=== PATIENT | male | born 1950 | race Caucasian/White ===

== ENCOUNTER 2016-09-27 04:45 | Emergency (ER) | payer MEDICARE, OTHER ==
[~2016-09-27] VITALS: Ht 177.8 cm; Wt 93.4 kg
[2016-09-27] MEDS ORDERED: ATOR1TAB18 PO (05:09)
[2016-09-27] MEDS ORDERED: LEVOTAB10 PO (05:09)
[2016-09-27] MEDS ORDERED: SOTA80TA2 PO (05:09)
[2016-09-27] MEDS ORDERED: LANS30CA PO (05:09)
[2016-09-27] MEDS ORDERED: ELIQ5TAB PO (05:09)
--- NOTE | 2016-09-27 05:58 | ECGEPIP ---
Stationary ECG Study [facility] - ED Test Date: 2016-09-27 Pat Name: YENNY TINAJERO Department: Room: - Gender: M Rate Marker: DIXON : 1950 Requested By: RAJ GOMEZ Order Number: [id number] Reading MD: Xavier Glover Measurements Intervals [place] Rate: 75 P: 22 [place]: 168 QRS: 16 QRSD: 146 T: -17 QT: 419 QTc: 469 Interpretive Statements SINUS RHYTHM RBBB, NEW Electronically Signed On 09-27-2016 5:57:29 EDT by Xavier Glover
[2016-09-27 06:15] LABS: BASO % 0.4 % (0.0-1.0); EOS # 0.3 K/mm3 (0.0-0.50); EOS % 2.7 % (0.0-3.0); LARGE UNSTAINED CELL # 0.3 K/mm3 (0.0-0.4); LARGE UNSTAINED CELL % 2.9 % (0.0-4.0); LYMPH # 3.5 K/mm3 (1.5-4.5); LYMPH % 27.4 % (24.0-44.0); MEAN CORPUSCULAR HEMOGLOBIN 31.7 pg (27.0-33.0); MEAN CORPUSCULAR HGB CONC 34.1 g/dl (32.0-36.5); MONO # 0.7 K/mm3 (0.0-0.8); NEUTROPHILS % 60.6 % (36.0-66.0); PLATELET COUNT, AUTOMATED 265 k/mm3 (150-450); RED CELL DISTRIBUTION WIDTH 13.4 % (11.5-14.5); WHITE BLOOD COUNT 11.6 K/mm3 (4.0-10.0)
[2016-09-27] MEDS ORDERED: ASPIRIN 325 MG TAB PO ONE (06:15)
[2016-09-27] MEDS ORDERED: MORPHINE 4 MG/ML 1ML SYRINGE IV ONE (06:15)
[2016-09-27 06:17] LABS: INR 1.09
[2016-09-27 06:34] LABS: ANION GAP 8 MEQ/L (8-16); BLOOD UREA NITROGEN 20 MG/DL (7-18); CALCIUM LEVEL 8.3 MG/DL (8.8-10.2); CARBON DIOXIDE LEVEL 25 MEQ/L (21-32); CHLORIDE LEVEL 108 MEQ/L (98-107); CREATININE FOR GFR 1.06 MG/DL (0.70-1.30); GLOMERULAR FILTRATION RATE > 60.0 (>49); GLUCOSE, FASTING 114 MG/DL (80-110); POTASSIUM SERUM 3.6 MEQ/L (3.5-5.1); SODIUM LEVEL 141 MEQ/L (136-145)
--- NOTE | 2016-09-27 08:18 | REP ---
Clinical: Chest pain. Comparison: 10/13/2015. Findings: Mediastinum and cardiac silhouette are stable. Lung dixno are clear. No focal consolidation, effusion, or pneumothorax. Skeletal structures intact. Impression: Stable portable chest x-ray. No acute cardiopulmonary process or focal consolidation Signed by [place] Alaniz MD 09/27/2016 08:10 A
[2016-09-27 11:45] VITALS: BP 101/58
== END 2016-09-27 12:19 | disposition home or self-care (01) ==
LOC: M ED 06:14
DX: R07.9 Chest pain, unspecified (principal); I10 Essential (primary) hypertension; I48.91 Unspecified atrial fibrillation; I51.9 Heart disease, unspecified; E78.5 Hyperlipidemia, unspecified; K21.9 Gastro-esophageal reflux disease without esophagitis; Z87.442 Personal history of urinary calculi; Z95.0 Presence of cardiac pacemaker; Z95.1 Presence of aortocoronary bypass graft; Z79.899 Other long term (current) drug therapy; Z79.01 Long term (current) use of anticoagulants; J30.9 Allergic rhinitis, unspecified; Z88.0 Allergy status to penicillin; Z91.041 Radiographic dye allergy status

== ENCOUNTER → 2017-03-03 | Outpatient (CLI) | payer MEDICARE, OTHER ==
[~2017-03-03] MED LIST: ATOR80TA59 PO; ELIQ5TAB PO; LANS30CA PO; LEVOTAB10 PO; SOTA80TA2 PO
--- NOTE | 2017-03-03 15:37 | REP ---
CT abdomen and pelvis without IV or oral contrast: History: Epigastric pain. Allergy to IV contrast. Comparison CT study October 14, 2015. CT findings: Preliminary frozen yogurt maker radiograph demonstrates a pacemaker in place in the right heart. There are calcifications overlying the right and left kidney. Axial CT images demonstrate that the lung bases are clear. No pleural effusion is seen. The liver and the spleen are normal in size, homogeneous in texture. There is some dependent slightly dense material in the gallbladder lumen suggesting fine gallstones. No adrenal lesion is seen on either side. The pancreas is unremarkable. There is bilateral intrarenal nephrolithiasis. The right kidney contains four identifiable calculi ranging in size up to 0.9 cm. The left kidney contains an intrarenal calculus in the upper pole measuring 1.2 cm. There is also a tiny 1 mm calculus at the mid pole level of the left kidney. There is a 3.2 cm cyst in the left kidney. No hydronephrosis is seen on either side. A smaller cyst is noted in the right kidney. No bladder calculus is seen. Prostate and seminal vesicles are unremarkable. There is left colonic diverticulosis without CT evidence of diverticulitis. Normal appendix is seen in the right lower quadrant. There is evidence of a stable small fluid collection versus area of fibrosis post left inguinal hernia repair. This extends to the lateral wall of the anterior aspect of the urinary bladder, but is unchanged from the comparison study October 13, 2015. No abdominal wall defect is seen. Impression: 1. Possible cholelithiasis. 2. Intrarenal nephrolithiasis bilaterally without hydronephrosis. 3. Bilateral small renal cysts. 4. Left colonic diverticulosis. 5. Status post left inguinal hernia repair. Signed by Jose Miguel Mercado MD 03/03/2017 06:37 P
== END ==
LOC: M RAD 13:16
PROVIDERS: ATTEND Family Medicine
DX: R10.816 Epigastric abdominal tenderness (principal)

== ENCOUNTER 2018-08-17 11:40 | Emergency (ER) | payer MEDICARE, OTHER ==
[~2018-08-17] VITALS: Ht 180.3 cm; Wt 96.0 kg
[2018-08-17] MEDS ORDERED: NITR0.4S14 (12:00)
[2018-08-17 12:26] LABS: BASO # 0.1 10^3/uL (0.0-0.2); BASO % 0.6 % (0.0-1.0); EOS # 0.3 10^3/uL (0.0-0.50); EOS % 3.4 % (0.0-3.0); HEMATOCRIT 48.1 % (42.0-52.0); HEMOGLOBIN 16.6 g/dl (13.5-17.5); LYMPH # 3.4 10^3/uL (1.5-4.5); LYMPH % 41.5 % (24.0-44.0); MEAN CORPUSCULAR HEMOGLOBIN 31.7 pg (27.0-33.0); MEAN CORPUSCULAR HGB CONC 34.5 g/dl (32.0-36.5); MONO # 0.8 10^3/uL (0.0-0.8); MONO % 9.3 % (0.0-5.0); NEUTROPHILS # 3.7 10^3/uL (1.8-7.7); NEUTROPHILS % 45.1 % (36.0-66.0); PLATELET COUNT, AUTOMATED 221 10^3/uL (150-450); RED BLOOD COUNT 5.23 10^6/uL (4.30-6.10); WHITE BLOOD COUNT 8.2 10^3/uL (4.0-10.0)
[2018-08-17 12:36] LABS: INR 1.26
[2018-08-17 13:00] LABS: ALBUMIN 4.1 GM/DL (3.2-5.2); ALT/SGPT 39 U/L (12-78); BILIRUBIN,DIRECT 0.3 MG/DL (0.0-0.2); BILIRUBIN,TOTAL 1.7 MG/DL (0.2-1.0); BLOOD UREA NITROGEN 15 MG/DL (7-18); CALCIUM LEVEL 9.1 MG/DL (8.8-10.2); CARBON DIOXIDE LEVEL 27 MEQ/L (21-32); CHLORIDE LEVEL 105 MEQ/L (98-107); CK-MB VALUE MASS < 1.0 NG/ML (<3.6); CPK CREATINE PHOSPHOKINASE 115 U/L (39-308); CREATININE FOR GFR 1.01 MG/DL (0.70-1.30); GLOMERULAR FILTRATION RATE > 60.0 (>49); GLUCOSE, FASTING 111 MG/DL (70-100); LIPASE 81 U/L (73-393); MB/CK RELATIVE INDEX 0.87 (< OR =4); POTASSIUM SERUM 4.5 MEQ/L (3.5-5.1); SODIUM LEVEL 139 MEQ/L (136-145); TOTAL PROTEIN 7.7 GM/DL (6.4-8.2); TROPONIN I 0.03 NG/ML (< 0.10)
--- NOTE | 2018-08-17 15:04 | REP ---
CHEST, SINGLE VIEW: There is no evidence of acute infiltrate. No pleural effusion is seen. The heart is normal in size. The mediastinal silhouette is unremarkable. The visualized osseous structures are intact. Left pacemaker is noted. There are multiple sternal wires. There is an old right clavicular fracture. IMPRESSION: No acute pulmonary disease. Electronically Signed by Davon Leon MD 08/17/2018 11:49 P
[2018-08-17 17:41] LABS: CK-MB VALUE MASS < 1.0 NG/ML (<3.6); CPK CREATINE PHOSPHOKINASE 84 U/L (39-308); MB/CK RELATIVE INDEX 1.19 (< OR =4); TROPONIN I 0.04 NG/ML (< 0.10)
[2018-08-17 18:35] VITALS: BP 109/66
--- NOTE | 2018-08-18 18:51 | ECGEPIP ---
Stationary ECG Study [facility] - ED Test Date: 2018-08-17 Pat Name: YENNY TINAJERO Department: Room: - Gender: M Relays Draftsperson: : 1950 Requested By: CITLALLI ALARCON PA-C. Order Number: [id number] Reading MD: Radha Cheyr Measurements Intervals [place] Rate: 82 P: 24 [place]: 171 QRS: 51 QRSD: 114 T: 8 QT: 390 QTc: 456 Interpretive Statements SINUS RHYTHM INCOMPLETE RIGHT BUNDLE BRANCH BLOCK MODERATE T-WAVE ABNORMALITY, CONSIDER ISCHEMIA INCREASED RATE 09/27/16 Electronically Signed On 08-18-2018 18:50:54 EST by Radha Chery
--- NOTE | 2018-08-18 18:58 | ECGEPIP ---
Stationary ECG Study [facility] - ED Test Date: 2018-08-17 Pat Name: YENNY TINAJERO Department: Room: - Gender: M Group Contract Analyst: : 1950 Requested By: ARCADIO MATTA Order Number: [id number] Reading MD: Radha Chery Measurements Intervals [place] Rate: 68 P: 3 [place]: 180 QRS: 20 QRSD: 117 T: -12 QT: 394 QTc: 421 Interpretive Statements SINUS RHYTHM LOW QRS VOLTAGE IN PRECORDIAL LEADS INCOMPLETE RIGHT BUNDLE BRANCH BLOCK INFERIOR MYOCARDIAL INFARCTION, PROBABLY OLD MODERATE T-WAVE ABNORMALITY, CONSIDER ISCHEMIA DECREASED RATE 08/17/18 Electronically Signed On 08-18-2018 18:58:21 EST by Rahda Chery
== END 2018-08-17 18:37 | disposition home or self-care (01) ==
LOC: M ED 11:40
DX: I20.8 Other forms of angina pectoris (principal); R06.02 Shortness of breath; I10 Essential (primary) hypertension; E78.5 Hyperlipidemia, unspecified; K21.9 Gastro-esophageal reflux disease without esophagitis; Z95.0 Presence of cardiac pacemaker; Z95.5 Presence of coronary angioplasty implant and graft; Z79.899 Other long term (current) drug therapy; Z79.01 Long term (current) use of anticoagulants; J30.9 Allergic rhinitis, unspecified; Z91.041 Radiographic dye allergy status; Z88.0 Allergy status to penicillin

== ENCOUNTER → 2018-12-24 | Outpatient (CLI) | payer MEDICARE, OTHER ==
[~2018-12-24] MED LIST changes: +CARB20TA PO; +CEPH500C PO; +CLEO300C2 PO; +NEUR100C PO; +NITR0.4S14; +VALT1TAB PO
--- NOTE | 2018-12-24 14:31 | REP ---
ORBITAL CT STUDY WITHOUT CONTRAST: HISTORY: Periorbital cellulitis. Attention left orbit. Contrast allergy. Post hepatic trigeminal neuralgia. 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 The visualized portions of the maxillary sinuses are clear. Ethmoid aeration is normal. Sphenoid air cells are clear. Frontal sinuses are clear. Mastoid aeration is normal and symmetric as visualized. There is no evidence of intraorbital mass or abnormal fluid collection. Extraocular muscles and optic nerves are unremarkable and symmetric. There is dystrophic calcification in the sclera of the ocular globe on the right. There is mild asymmetric soft tissue swelling in the anteromedial preseptal soft tissues of the left orbit consistent with cellulitis. There is vascular calcification in the carotid siphons bilaterally. Visualized intracranial structures are unremarkable. IMPRESSION: Anteromedial preseptal soft tissue swelling left orbit. No intraorbital abnormality is seen. Visualized paranasal sinuses are clear. Vascular calcification is noted. Electronically Signed by Jose Miguel Mercado MD 12/24/2018 03:44 P
== END ==
LOC: M RAD 13:43
PROVIDERS: ATTEND Family Medicine
DX: L03.213 Periorbital cellulitis (principal); B02.22 Postherpetic trigeminal neuralgia

== ENCOUNTER 2018-12-25 13:00 | Emergency (ER) | payer MEDICARE, OTHER ==
[~2018-12-25] VITALS: Ht 177.8 cm; Wt 91.4 kg
[~2018-12-25 13:00] MED LIST changes: -CARB20TA PO; -CEPH500C PO; -CLEO300C2 PO; -NEUR100C PO; -VALT1TAB PO
[2018-12-25] MEDS ORDERED: NEUR100C PO (13:14)
[2018-12-25] MEDS ORDERED: CEPH500C PO (13:14)
[2018-12-25] MEDS ORDERED: CARB20TA PO (13:14)
[2018-12-25] MEDS ORDERED: CLINDAMYCIN 600 MG in APPROPRIATE DILUENT 1 EA IV ONE (16:15)
[2018-12-25] MEDS ORDERED: VALT1TAB PO (17:57)
[2018-12-25] MEDS ORDERED: CLEO300C2 PO (17:57)
[2018-12-25 18:15] VITALS: BP 129/81
== END 2018-12-25 18:38 | disposition home or self-care (01) ==
LOC: M ED 13:00
DX: L03.213 Periorbital cellulitis (principal); B02.9 Zoster without complications; I11.9 Hypertensive heart disease without heart failure; I25.10 Atherosclerotic heart disease of native coronary artery without angina pectoris; Z95.0 Presence of cardiac pacemaker; Z88.0 Allergy status to penicillin; Z91.041 Radiographic dye allergy status; Z79.899 Other long term (current) drug therapy; Z79.02 Long term (current) use of antithrombotics/antiplatelets